=== PATIENT | female | born 1950 | race Caucasian/White ===

== ENCOUNTER 2017-08-31 09:28 | Emergency (ER) | payer MEDICARE, BC, OTHER ==
[~2017-08-31] VITALS: Ht 172.7 cm; Wt 87.0 kg
[~2017-08-31 09:28] MED LIST: ACET-812 PO; ALPR-623 PO; CARI350T PO; DULO-31 PO; ESTR-42 PO; LYR75C PO; PANT-47 PO; TRAM50TA2 PO
[2017-08-31 10:25] VITALS: BP 141/106
[2017-08-31 10:30] LABS: CLARITY,URINE CLEAR (Clear); COLOR,URINE YELLOW (Yellow); GLUCOSE, URINE NEGATIVE (Neg); KETONES,URINE NEGATIVE (Neg); LEUKOCYTE ESTERASE ,URINE NEGATIVE (Neg); NITRITES, URINE NEGATIVE (Neg); OCCULT BLOOD,URINE NEGATIVE (Neg); PROTEIN,URINE NEGATIVE (Neg); UA COLLECTION TYPE CLN CATCH MIDSTREAM; UROBILINOGEN,URINE 0.2 E.U/dL (0.2-1.0)
[2017-08-31 11:20] LABS: BASOPHILS % (AUTO) 0.5 % (0-1); EOSINOPHILS % (AUTO) 0.4 % (0-6); HEMOGLOBIN 13.2 g/dl (12.0-16.0); LYMPHOCYTES # (AUTO) 0.9 X10'3 (1.1-4.8); LYMPHOCYTES % (AUTO) 25.7 % (21-51); MEAN CORPUSCULAR HEMOGLOBIN 33.6 PG (27.0-31.0); MEAN CORPUSCULAR VOLUME 98.9 FL (78-98); MONOCYTES # (AUTO) 0.3 X10'3 (0-0.9); MONOCYTES % (AUTO) 9.2 % (2-12); NEUTROPHILS # (AUTO) 2.3 X10'3 (1.8-7.7); NEUTROPHILS % (AUTO) 64.2 % (42-75); PLATELET COUNT 218 X10'3 (140-440); RED BLOOD COUNT 3.94 X10'6 (4.20-5.60); RED CELL DISTRIBUTION WIDTH 14.4 % (11.5-14.5); WHITE BLOOD COUNT 3.6 X10'3 (4.5-11.0)
[2017-08-31 11:37] LABS: ALANINE AMINOTRANSFERASE 24 U/L (12-78); ALBUMIN 3.5 G/DL (3.4-5.0); ALKALINE PHOSPHATASE 58 IU/L (46-116); ANION GAP 8 (8-16); ASPARTATE AMINO TRANSFERASE 19 U/L (10-37); BILIRUBIN,TOTAL 0.3 MG/DL (0.1-1.0); BLOOD UREA NITROGEN 11 MG/DL (7-18); BUN/CREATININE RATIO 14.3 (6.6-38.0); CALCIUM 8.4 MG/DL (8.5-10.1); CHLORIDE 105 MMOL/L (99-107); CREATININE 0.77 MG/DL (0.40-0.90); GLUCOSE 103 MG/DL (70-104); LIPASE 95 U/L (73-393); POTASSIUM 3.6 MMOL/L (3.5-5.1); SODIUM 140 MMOL/L (135-145); TOTAL CARBON DIOXIDE 27.5 MMOL/L (24-32); eGFR 75 ML/MIN
[2017-08-31] MEDS ORDERED: oxyCODONE/APAP 10/325mg tablet PO ONE (11:50)
== END 2017-08-31 12:31 | disposition home or self-care (01) ==
LOC: ER 09:29
DX: R10.30 Lower abdominal pain, unspecified (principal); E03.9 Hypothyroidism, unspecified; M79.7 Fibromyalgia; Z98.890 Other specified postprocedural states; Z79.899 Other long term (current) drug therapy
CPT/HCPCS: 36415; 76856; 80053; 81003; 83690; 85025; 99285

== ENCOUNTER 2018-01-26 05:52 | Day surgery (SDC) | payer MEDICARE, OTHER ==
[2018-01-19 11:51] LABS: BASOPHILS % (AUTO) 0.2 % (0-1); EOSINOPHILS % (AUTO) 0 % (0-6); LYMPHOCYTES # (AUTO) 0.8 X10'3 (1.1-4.8); LYMPHOCYTES % (AUTO) 14.9 % (21-51); MEAN CORPUSCULAR HEMOGLOBIN 32.4 PG (27.0-31.0); MEAN CORPUSCULAR HGB CONC 33.5 % (33.0-36.5); MEAN CORPUSCULAR VOLUME 96.8 FL (78-98); MEAN PLATELET VOLUME 6.6 FL (7.4-10.4); MONOCYTES # (AUTO) 0.5 X10'3 (0-0.9); MONOCYTES % (AUTO) 9.7 % (2-12); NEUTROPHILS # (AUTO) 4.1 X10'3 (1.8-7.7); NEUTROPHILS % (AUTO) 75.2 % (42-75); PRE OP HEMATOCRIT 38.4 % (35.0-45.0); PRE OP HEMOGLOBIN 12.8 g/dL (12.0-16.0); PRE OP PLATELET COUNT 303 X10'3 (140-440); RED BLOOD COUNT 3.96 X10'6 (4.20-5.60); RED CELL DISTRIBUTION WIDTH 13.4 % (11.5-14.5)
[2018-01-19 12:47] LABS: ALBUMIN 3.7 G/DL (3.4-5.0); ALBUMIN/GLOBULIN RATIO 1.1 (1.1-1.5); ALKALINE PHOSPHATASE 71 IU/L (46-116); BLOOD UREA NITROGEN 15 MG/DL (7-18); BUN/CREATININE RATIO 18.3 (6.6-38.0); CALCIUM 9.1 MG/DL (8.5-10.1); CHLORIDE 101 MMOL/L (99-107); CREATININE 0.82 MG/DL (0.40-0.90); PRE OP ALT 19 U/L (30-65); PRE OP ANION GAP 9 (8-16); PRE OP AST 12 U/L (10-37); PRE OP BILIRUB, TOTAL 0.2 MG/DL (0.0-1.0); PRE OP GLUCOSE 109 MG/DL (70-104); PRE OP SODIUM 138 MMOL/L (135-145); TOTAL PROTEIN 7.1 G/DL (6.4-8.2); eGFR 70 ML/MIN
[~2018-01-26] VITALS: Ht 172.7 cm; Wt 89.0 kg
[~2018-01-26 05:52] MED LIST changes: -ACET-812 PO; -ALPR-623 PO; -CARI350T PO; +GABA-532 PO; +LISI40TA4 PO; -LYR75C PO; +OXYC-150 PO; -TRAM50TA2 PO; +cefazolin/dext.iso 2gm/50ml 50 ML IV ONE; +famotidine 20mg tablet PO ONE; +ringers solution, lacted 1,000 ML IV SCH
[2018-01-26] MEDS ORDERED: LIDOcaine 1% (10mg/ml) 2ml vial ONE (06:33)
[2018-01-26] MEDS ORDERED: BUPIVAcaine/PF 2.5mg/ml (0.25%) 10ml vial ONE ×2 (06:43→08:40)
[2018-01-26] MEDS ORDERED: LIDOcaine 0.5% (5mg/ml) 50ml vial ONE (07:12)
[2018-01-26] MEDS ORDERED: fentaNYL/PF 50MCG/1 ML 2ML syringe ONE (07:17)
[2018-01-26] MEDS ORDERED: MIDAZolam 5mg/5ml vial ONE (07:17)
[2018-01-26] MEDS ORDERED: proCHLORperazine 10 MG/2 ml inj IV PRN (08:20)
[2018-01-26] MEDS ORDERED: morphine 4 MG/ML inj SYRINge IV PRN ×2 (08:20)
[2018-01-26] MEDS ORDERED: meperidine/PF 25mg/ml syringe IV PRN ×3 (08:20)
[2018-01-26] MEDS ORDERED: ondansetron/PF 4mg/2ml inj IV PRN (08:20)
[2018-01-26] MEDS ORDERED: ringers solution, lacted 1,000 ML IV SCH (08:20)
[2018-01-26] MEDS ORDERED: propofol inj 20 ML IV ONE ×2 (08:31)
[2018-01-26 08:50] VITALS: BP 114/73
[2018-01-26 09:00] VITALS: BP 116/75
[2018-01-26 09:10] VITALS: BP 122/45
[2018-01-26 09:16] VITALS: BP 114/69
[2018-01-26 09:20] VITALS: BP 116/53
[2018-01-26 09:23] VITALS: BP 114/69
== END 2018-01-26 09:20 | disposition home or self-care (01) ==
LOC: PAS 05:52
PROVIDERS: ATTEND Orthopaedic Surgery Hand Surgery
DX: M18.12 Unilateral primary osteoarthritis of first carpometacarpal joint, left hand (principal); I10 Essential (primary) hypertension; G89.29 Other chronic pain; E66.9 Obesity, unspecified; K21.9 Gastro-esophageal reflux disease without esophagitis; F32.9 Major depressive disorder, single episode, unspecified; F41.8 Other specified anxiety disorders; Z87.01 Personal history of pneumonia (recurrent); Z87.09 Personal history of other diseases of the respiratory system; Z86.79 Personal history of other diseases of the circulatory system; Z79.2 Long term (current) use of antibiotics; Z79.891 Long term (current) use of opiate analgesic; Z72.89 Other problems related to lifestyle; Z96.653 Presence of artificial knee joint, bilateral; Z96.642 Presence of left artificial hip joint; Z90.89 Acquired absence of other organs; Z68.29 Body mass index [BMI] 29.0-29.9, adult; Z90.49 Acquired absence of other specified parts of digestive tract; Z79.899 Other long term (current) drug therapy; Z98.890 Other specified postprocedural states
CPT/HCPCS: 25310; 25447; 36415; 80053; 85025; 93005; A6222; A6449; J0690; J2001; J2250; J2704; J3010; J3490; J7120; A7000

== ENCOUNTER 2019-08-06 22:44 | Emergency (ER) | payer MEDICARE, OTHER ==
[~2019-08-06] VITALS: Ht 172.7 cm; Wt 88.6 kg
[~2019-08-06 22:44] MED LIST changes: -cefazolin/dext.iso 2gm/50ml 50 ML IV ONE; -famotidine 20mg tablet PO ONE; -ringers solution, lacted 1,000 ML IV SCH
[2019-08-06] MEDS ORDERED: morphine 4 MG/ML inj SYRINge IM ONE (23:30)
[2019-08-06] MEDS ORDERED: ondansetron 4mg rapidly disintigrating tab PO ONE (23:30)
[2019-08-06] MEDS ORDERED: morphine 10mg/ml inj. IM ONE (23:35)
[2019-08-06 23:59] VITALS: BP 140/93
== END 2019-08-07 00:05 | disposition home or self-care (01) ==
LOC: ER 22:44
DX: S52.591A Other fractures of lower end of right radius, initial encounter for closed fracture (principal); S49.91XA Unspecified injury of right shoulder and upper arm, initial encounter; I10 Essential (primary) hypertension; E03.9 Hypothyroidism, unspecified; G89.29 Other chronic pain; F41.9 Anxiety disorder, unspecified; F32.9 Major depressive disorder, single episode, unspecified; Z98.890 Other specified postprocedural states; Z79.899 Other long term (current) drug therapy; W19.XXXA Unspecified fall, initial encounter; Y93.89 Activity, other specified; Y92.89 Other specified places as the place of occurrence of the external cause; Y99.8 Other external cause status
CPT/HCPCS: 73030; 96372; 99284; J2270

== ENCOUNTER 2020-08-27 09:13 | Outpatient (CLI) | payer MEDICARE, OTHER ==
[~2020-08-27 09:13] MED LIST changes: +LISI40TA13 PO; -LISI40TA4 PO
== END 2020-08-27 23:59 | disposition home or self-care (01) ==
LOC: 64 CT 09:13
PROVIDERS: ATTEND Physician Assistant Surgical
DX: M47.816 Spondylosis without myelopathy or radiculopathy, lumbar region (principal); M48.56XA Collapsed vertebra, not elsewhere classified, lumbar region, initial encounter for fracture; M48.061 Spinal stenosis, lumbar region without neurogenic claudication; W19.XXXA Unspecified fall, initial encounter
CPT/HCPCS: 72131